=== PATIENT | male | born 1965 | race Caucasian/White ===

== ENCOUNTER 2024-04-06 20:04 | Inpatient (IN) | payer MEDICAID, OTHER ==
[~2024-04-06] VITALS: Ht 172.7 cm; Wt 132.0 kg
--- NOTE | 2024-04-06 22:01 | ED.PDOC ---
Musculoskeletal HPI Comments 58 year old male brought in by EMS, referred by Dr. Espinoza for admission due to a left lower extremity wound. Patient has history of hypertension, diabetes, congestive heart failure, DVT left leg, on Coumadin. He states has had a nonhealing left lower extremity wound with yellow discharge, redness and swe lling intermittently for the past 7 years. Patient states he was seen by Dr. Espinoza for the 1st time 2 days ago and was advised to come to the ER for treatment and hospital admission. Chief Complaint: Lower Extremity Time Seen by MD: 22:00 Reviewed Notes: Strategy Execution Consultant Notes Allergies: Coded Allergies: Ibuprofen (Verified Allergy, Unknown, 04/06/24) Information Source: Patient Mode of Arrival: EMS Location: Left Extremity Location: Leg Timing: Months Prehospital treatment: None Severity: Moderate Able to Move Extremity: Yes Bear Weight: Fully Pain: Moderate Hand Dominance: Right Mechanism: Spontaneous Circumstances: Spontaneous Onset of Symptoms: Spontaneous Symptoms: Swelling, Erythema DVT Risk Factors: CHF, DVT Associated signs and symptoms: Leg pain (left) Past Medical History PAST MEDICAL HISTORY: CHF, DM, Gout, HTN Past Medical History (Other): DVT left leg Surgical History (Other): Left leg surgery Family History Family History: Reviewed,noncontributory to illness Social History Smoker: Non-Smoker Alcohol: Denies ETOH Use Drugs: Denies Drug Use Lives In: Home Constitutional: denies: chills, diaphoresis, fatigue, fever, malaise, sweats, weakness, others EENTM: denies: blurred vision, double vision, ear bleeding, ear discharge, ear drainage, ear pain, ear ringing, eye pain, eye redness, hearing loss, mouth pain, mouth swelling, nasal discharge, nose bleeding, nose congestion, nose pain, photophobia, tearing, throat pain, throat swelling, voice changes, others Respiratory: denies: cough, hemoptysis, orthopnea, SOB at rest, shortness of breath, SOB with excertion, stridor, wheezing, others Cardiovascular: denies: chest pain, dizzy spells, diaphoresis, Dyspnea on exertion, edema, irregular heart beat, left arm pain, lightheadedness, palpitations, PND, syncope, others Gastrointestinal: denies: abdomen distended, abdominal pain, blood streaked bowels, constipated, diarrhea, dysphagia, difficulty swallowing, hematemesis, melena, nausea, poor appetite, poor fluid intake, rectal bleeding, rectal pain, vomiting, others Genitourinary: denies: burning, dysuria, flank pain, frequency, hematuria, incontinence, penile discharge, penile sore, pain, testicle pain, testicle swelling, urgency, others Neurological: denies: dizziness, fainting, headache, left sided numbness, left sided weakness, numbness, paresthesia, pre-existing deficit, right sided numbne ss, right sided weakness, seizure, speech problems, tingling, tremors, weakness, others Musculoskeletal: denies: back pain, gout, joint pain, joint swelling, muscle pain, muscle stiffness, neck pain, others Integumetry: reports: wounds (Left lower leg); denies: bruises, change in color, change in hair/nails, dryness, laceration, lesions, lumps, rash, others Allergic/Immunocompromised: denies: Difficulty Healing, Frequent Infections, Hives, Itching, others Hematologic/Lymphatic: denies: anemia, blood clots, easy bleeding, easy bruising, swollen glands, others Endocrine: denies: excessive hunger, excessive sweating, excessive thirst, excessive urination, flushing, intolerance to cold, intolerance to heat, unexplained weight gain, unexplained weight loss, others Psychiatric: denies: anxiety, bipolar disorder, depression, hopeless, panic disorder, schizophrenia, sleepless, suicidal, others Physical Exam General Appearance: No Apparent Distress, Obese HEENT: Other (Unremarkable) Neck: Full Range of Motion, Normal Inspection Respiratory: Lungs Clear, No Accessory Muscle Use, No Respiratory Distress, Normal Breath Sounds Cardiovascular: No JVD, Regular Rate/Rhythm Breast Exam: Deferred Gastrointestinal: Non Tender, Soft Genitalia: Deferred Pelvic: Deferred Rectal: Deferred Extremities: Leg edema, Normal range of motion, Pedal edema, Other (Left lower extremity chronic appearing erythema, 4+ edema, skin crusting with open wound on the posterior medial aspect of the ankle with yellow crust/discharge) Musculoskeletal : Location: Bilateral (Lower extremities 4+ edema) Neurologic: Alert (Oriented x4), Normal Affect, Normal Mood, Other (Ambulatory without difficulty. No gross focal deficit.) Cerebellar Function: NOT DONE Reflexes: NOT DONE Skin: Dry, Wounds (Left lower extremity chronic appearing erythema, 4+ edema, skin crusting with open wound on the posterior medial aspect of the ankle with yellow crust/discharge) Lymphatic: NOT DONE Was a procedure done? Was a procedure done?: No Differential Diagnosis EXT Differential Diagnosis: Cellulitis, CHF, Deep Vein Thrombosis, Septic X-Ray, Labs, Meds, VS Vital Signs Date Time Temp Pulse Resp B/P (MAP) Pulse Ox O2 Delivery O2 Flow Rate FiO2 04/07/24 02:00 63 12 105/64 (78) 100 04/07/24 00:00 65 13 106/59 (75) 97 04/07/24 00:00 Room Air* 0 21 04/06/24 20:06 98.2 68 16 134/78 (96) 95 Lab Test 04/06/24 22:47 Range/Units White Blood Count 9.1 4.4-10.8 10^3/uL Red Blood Count 4.94 4.5-5.90 10^6/uL Hemoglobin 13.9 13.5-17.5 g/dL Hematocrit 42.3 41.0-53.0 % Mean Corpuscular Volume 85.6 80.0-100.0 fL Mean Corpuscular Hemoglobin 28.2 28.0-32.0 pg Mean Corpuscular Hemoglobin Concent 32.9 32.0-36.0 g/dL Red Cell Distribution Width 15.0 H 11.8-14.3 % Platelet Count 278 140-450 10^3/uL Mean Platelet Volume 7.2 6.9-10.8 fL Neutrophils (%) (Auto) 66.2 37.0-80.0 % Lymphocytes (%) (Auto) 23.3 10.0-50.0 % Monocytes (%) (Auto) 8.7 0.0-12.0 % Eosinophils (%) (Auto) 1.3 0.0-7.0 % Basophils (%) (Auto) 0.5 0.0-2.0 % Neutrophils # (Auto) 6.0 1.6-8.6 10 ^3/uL Lymphocytes # (Auto) 2.1 0.4-5.4 10 ^3/uL Monocytes # (Auto) 0.8 0-1.3 10 ^3/uL Eosinophils # (Auto) 0.1 0-0.8 10 ^3/uL Basophils # (Auto) 0 0-0.2 10 ^3/uL Nucleated Red Blood Cells 0.1 % Sodium Level 137 136-145 mmol/L Potassium Level 3.4 L 3.5-5.1 mmol/L Chloride Level 100 98-107 mmol/L Carbon Dioxide Level 29 20-31 mmol/L Anion Gap 8 5-15 Blood Urea Nitrogen 12 9-23 mg/dL Creatinine 0.76 0.700-1.30 mg/dL Glomerular Filtration Rate Calc 105 >90 mL/min BUN/Creatinine Ratio 15.8 10.0-20.0 Serum Glucose 42 *L 74-106 mg/dL Lactic Acid Level 1.7 0.4-2.0 mmol/L Calcium Level 10.0 8.7-10.4 mg/dL B-Type Natriuretic Peptide 10.58 0-100 pg/mL Current Medications Medications (Trade) Dose Ordered Sig/Liseth Route Start Time Stop Time Status Last Admin Piperacillin Sod/ Tazobactam Sod 100 ml @ 100 mls/hr ONCE ONCE IV 04/06/24 22:15 04/06/24 23:14 DC 04/07/24 00:55 Potassium Chloride (Klor-Con Tablet) 40 meq ONCE ONCE PO 04/07/24 00:30 04/07/24 00:34 DC 04/07/24 00:55 Dextrose/Sodium Chloride 1,000 ml @ 75 mls/hr [id number] IV 04/07/24 02:30 04/07/24 03:44 EXAMINATION: AP portable chest radiograph CLINICAL HISTORY: lower extremity edema COMPARISON: None FINDINGS: Central vascular redistribution. Streaky opacities in the lung bases. Mild apparent prominence of the cardiac silhouette may be in part exaggerated by technique. No definite pleural effusion or pneumothorax. IMPRESSION: Pulmonary vascular congestion. Lateral lower lung field opacities may reflect atelectasis, edema and/or developing infiltrates. Please correlate to exclude infection. X-Ray, Labs, Meds, VS Comment 58-year-old male with a history of CHF, diabetes, hypertension, gout and chronic left lower extremity DVT referred by Dr. Espinoza for hospital admission due to left lower extremity open nonhealing wound Vitals unremarkable Exam remarkable for left lower extremity chronic appearing erythema, 4+ edema, skin crusting with open wound on the posterior medial aspect of the ankle with yellow crust/discharge Rhythm strip independently interpreted by me: Sinus rhythm, rate 68, no ectopy. Chest x-ray IMPRESSION: Pulmonary vascular congestion. Lateral lower lung field opacities may reflect atelectasis, edema and/or developing infiltrates. Please correlate to exclude infection. CBC unremarkable, basic metabolic panel remarkable for potassium 3.4, glucose 42, BNP normal, lactic normal, blood cultures pending Patient treated with the following in the ED: Zosyn 4.5 g IV On re-evaluation, patient is resting comfortably with stable vitals. Plan is to admit the patient for IV antibiotics, diuresis and wound care evaluation Time of 1ST Reevaluation: 21:55 Reevaluation 1ST: Unchanged Patient Education/Counseling: Diagnosis, Treatment Family Education/Counseling: No Family Present Departure 1 Departure Time of Disposition: 23:19 Impression: Primary Impression: Left leg cellulitis Disposition: ADMITTED INPATIENT Admit to: Med Surg Condition: Fair Critical Care Note Critical Care Time?: No Stability Stability form required: No Heart Score Heart Score: Heart Score Response (Comments) Value History N/A 0 EKG N/A 0 Age N/A 0 Risk Factors N/A 0 Troponin N/A 0 Total 0 I personally scribed for BETH GARCIA MD ([email or web address]) on 04/06/24 at 22:01. Electronically submitted by Eric Buck ([employer]). I personally scribed for BETH GARCIA MD ([email or web address]) on 04/07/24 at 00:08. Electronically submitted by Eric Buck ([email or web address]). BETH GARCIA MD Apr 06, 2024 22:01
--- NOTE | 2024-04-06 22:28 | DVH ---
EXAMINATION: AP portable chest radiograph CLINICAL HISTORY: lower extremity edema COMPARISON: None FINDINGS: Central vascular redistribution. Streaky opacities in the lung bases. Mild apparent prominence of the cardiac silhouette may be in part exaggerated by technique. No definite pleural effusion or pneumoth orax. IMPRESSION: Pulmonary vascular congestion. Lateral lower lung field opacities may reflect atelectasis, edema and/or developing infiltrates. Plea se correlate to exclude infection.
[2024-04-06 23:05] LABS: Basophils # (auto) 0 10 ^3/uL (0-0.2); Basophils % (auto) 0.5 % (0.0-2.0); Eosinophils # (auto) 0.1 10 ^3/uL (0-0.8); Eosinophils % (auto) 1.3 % (0.0-7.0); Hematocrit 42.3 % (41.0-53.0); Hemoglobin 13.9 g/dL (13.5-17.5); Lymphocytes # (auto) 2.1 10 ^3/uL (0.4-5.4); Lymphocytes % (auto) 23.3 % (10.0-50.0); Mean Corpuscular Hemoglobin 28.2 pg (28.0-32.0); Mean Corpuscular Hgb Conc. 32.9 g/dL (32.0-36.0); Mean Corpuscular Volume 85.6 fL (80.0-100.0); Monocytes # (auto) 0.8 10 ^3/uL (0-1.3); Monocytes % (auto) 8.7 % (0.0-12.0); Neutrophils % (auto) 66.2 % (37.0-80.0); Nucleated Red Blood Cells % 0.1 %; Platelet Count (auto) 278 10^3/uL (140-450); Red Blood Cells 4.94 10^6/uL (4.5-5.90); White Blood Cell 9.1 10^3/uL (4.4-10.8)
[2024-04-06 23:15] LABS: Chloride 100 mmol/L (98-107); Sodium 137 mmol/L (136-145)
[2024-04-06 23:16] LABS: Anion Gap 8 (5-15); Carbon Dioxide 29 mmol/L (20-31)
[2024-04-06 23:19] LABS: Potassium 3.4 mmol/L (3.5-5.1)
[2024-04-06 23:21] LABS: BUN/Creatinine Ratio 15.8 (10.0-20.0); Blood Urea Nitrogen 12 mg/dL (9-23)
[2024-04-06 23:58] LABS: Glucose 42 mg/dL (74-106)
[2024-04-07] MEDS: FUROSEMIDE 40 MG/4 ML VIAL IV ONE (00:14)
[2024-04-07] MEDS: PIPERACILLIN-TAZO 4.5GM 100 ML IV ONE (00:55)
[2024-04-07] MEDS: POTASSIUM CHL 20 Meq TABLET PO ONE (00:55)
[2024-04-07] MEDS ORDERED: DOCUSATE SOD 100 MG CAP PO PRN (02:30)
[2024-04-07] MEDS ORDERED: HYDROcodone-ACET 5/325MG TAB PO PRN (02:30)
[2024-04-07] MEDS ORDERED: ONDANSETRON HCL 4 MG/2 ML VIAL IV PRN (02:30)
[2024-04-07] MEDS ORDERED: DEXTROSE (50%) 50ML SYRG IV PRN (02:30)
[2024-04-07] MEDS ORDERED: ACETAMINOPHEN 325 MG TAB PO PRN (02:30)
[2024-04-07] MEDS ORDERED: MORPHINE SULFATE INJ 2 MG/ml SYRG IV PRN (03:15)
[2024-04-07] MEDS ORDERED: NITROGLYCERIN 0.4 MG SL TAB SL PRN (03:15)
--- NOTE | 2024-04-07 03:16 | DVHHP2 ---
History of Present Illness Reason for Visit: Left leg cellulitis History of Present Illness The patient is a 58 year old male with past medical history of CHF, DM, gout, hypertension, and left leg DVT on Coumadin presented to [facility] ED for evaluation of left lower extremity wound. Patient reports he has been experiencing nonhealing left lower extremity wound with yellow discharge, redness, and swelling intermittently for the past 7 years. Patient was seen and evaluated in the ED, laboratory data shows WBC 9.1, platelets 278, sodium 137, potassium 3.4, BUN 12, creatinine 0.76, GFR 105, glucose 42, BNP 10.58, blood pressure 106/59, heart rate 65, temperature 98.2 F, O2 saturation 97% room air. Chest x-ray revealing pulmonary vascular congestion, lateral lower lung field opacity may reflect atelectasis, edema and/or developing infiltrates. Patient was started on IV antibiotic regimen Zosyn, please see medication orders section in the computer. On my assessment, patient denied chest pain, no headache, no dizziness, no diaphoresis, no nausea, no vomiting, no fever, no chills. Patient was admitted for further evaluation and medical management. Past Medical History CHF, DM, Gout, HTN, DVT left leg Past Surgical History Left leg surgery Family History Reviewed, noncontributory to the management of this case. Past Social History The patient lives at home, denies smoking, alcohol or illicit drugs abuse. Review of Systems Constitutional: Yes: Weakness; No: Fever, Chills, Sweats, Malaise, Other Eyes: No: Pain, Vision change, Conjunctivae inflammation, Eyelid inflammation, Other, Redness ENT: No: Ear pain, Ear discharge, Nose pain, Nose discharge, Nose congestion, Mouth pain, Mouth swelling, Throat pain, Throat swelling, Other Respiratory: No: Cough, Dry, Shortness of breath, SOB with excertion, Wheezing, Hemoptysis, Pleuritic Pain, Sputum, Wheezing, Other Cardiovascular: No: Chest Pain, Palpitations, Orthopnea, Paroxysmal Noc. Dyspnea, Edema, Lt Headedness, Other Gastrointestinal: No: Nausea, Vomiting, Abdominal Pain, Diarrhea, Constipation, Melena, Hematochezia, Other Genitourinary: No Dysuria, No Frequency, No Incontinence, No Hematuria, No Retention, No Other Musculoskeletal: No: other, neck pain, shoulder pain, arm pain, back pain, hand pain, leg pain, foot pain Skin: Other (Wound left lower leg); No: Rash, Lesions, Jaundice, Bruising Neurological: No: Weakness, Numbness, Incoordination, Change in speech, Confusion, Seizures, Other Allergies: Coded Allergies: Ibuprofen (Verified Allergy, Unknown, 04/06/24) Medications Current Medications Medications Dose Ordered Sig/Liseth Route Start Time Stop Time Status Last Admin Dose Admin Furosemide 40 mg DAILY IV 04/07/24 10:00 Warfarin Sodium RX PROTOCOL PER PHARMACY PO 04/07/24 02:30 UNV Piperacillin Sod/ Tazobactam Sod 100 ml @ 25 mls/hr Q8H IV 04/07/24 09:00 Diagnostic Test (Pha) 1 strip ACHS 04/07/24 07:00 Insulin Human Regular ACHS SC 04/07/24 07:00 Dextrose 50 ml UD PRN IV 04/07/24 02:30 Sodium Chloride 10 ml Q8HR IV 04/07/24 06:00 Acetaminophen/ Hydrocodone Bitart 1 tab Q4HP PRN PO 04/07/24 02:30 Ondansetron HCl 4 mg Q4HP PRN IV 04/07/24 02:30 Docusate Sodium 100 mg BIDPRN PRN PO 04/07/24 02:30 Acetaminophen 650 mg Q6HP PRN PO 04/07/24 02:30 Dextrose/Sodium Chloride 1,000 ml @ 75 mls/hr [id number] IV 04/07/24 02:30 Exam Vital Signs Vital Signs Date Time Temp Pulse Resp B/P (MAP) Pulse Ox O2 Delivery O2 Flow Rate FiO2 04/07/24 02:00 63 12 105/64 (78) 100 04/07/24 00:00 Room Air* 0 21 04/06/24 20:06 98.2 General Appearance: Alert, Oriented X3, Cooperative, No acute distress HEENT: Atraumatic, PERRLA, EOMI, Mucous membr. moist/pink Respiratory: Clear to auscultation, Normal air movement Cardiovascular: Regular rate, Normal S1, Normal S2, No murmurs Abdominal: Normal bowel sounds, Soft, No tenderness, No hepatospenomegaly, No masses Extremities: No clubbing, No cyanosis, No edema, Normal pulses, No tenderness/swelling Skin: No rashes, No breakdown, No significant lesion Neuro: Normal speech, Normal tone, Sensation intact, Cranial nerves 3-12 NL, Reflexes 2+, Other (Generalized weakness) Psych/Mental Status: Mental status NL, Mood NL Labs/Xrays Labs Test 04/06/24 22:47 Range/Units White Blood Count 9.1 4.4-10.8 10^3/uL Red Blood Count 4.94 4.5-5.90 10^6/uL Hemoglobin 13.9 13.5-17.5 g/dL Hematocrit 42.3 41.0-53.0 % Mean Corpuscular Volume 85.6 80.0-100.0 fL Mean Corpuscular Hemoglobin 28.2 28.0-32.0 pg Mean Corpuscular Hemoglobin Concent 32.9 32.0-36.0 g/dL Red Cell Distribution Width 15.0 H 11.8-14.3 % Platelet Count 278 140-450 10^3/uL Mean Platelet Volume 7.2 6.9-10.8 fL Neutrophils (%) (Auto) 66.2 37.0-80.0 % Lymphocytes (%) (Auto) 23.3 10.0-50.0 % Monocytes (%) (Auto) 8.7 0.0-12.0 % Eosinophils (%) (Auto) 1.3 0.0-7.0 % Basophils (%) (Auto) 0.5 0.0-2.0 % Neutrophils # (Auto) 6.0 1.6-8.6 10 ^3/uL Lymphocytes # (Auto) 2.1 0.4-5.4 10 ^3/uL Monocytes # (Auto) 0.8 0-1.3 10 ^3/uL Eosinophils # (Auto) 0.1 0-0.8 10 ^3/uL Basophils # (Auto) 0 0-0.2 10 ^3/uL Nucleated Red Blood Cells 0.1 % Sodium Level 137 136-145 mmol/L Potassium Level 3.4 L 3.5-5.1 mmol/L Chloride Level 100 98-107 mmol/L Carbon Dioxide Level 29 20-31 mmol/L Anion Gap 8 5-15 Blood Urea Nitrogen 12 9-23 mg/dL Creatinine 0.76 0.700-1.30 mg/dL Glomerular Filtration Rate Calc 105 >90 mL/min BUN/Creatinine Ratio 15.8 10.0-20.0 Serum Glucose 42 *L 74-106 mg/dL Lactic Acid Level 1.7 0.4-2.0 mmol/L Calcium Level 10.0 8.7-10.4 mg/dL B-Type Natriuretic Peptide 10.58 0-100 pg/mL PATIENT: JILLIAN RIVAS ACCT: [id number] UNIT: [id number] : 1965 LOC: ER ROOM / BED: / AGE / SEX: 58 / M ADM STATUS: REG ER SERVICE 00 ORDERING PHYSICIAN: BETH GARCIA MD PROCEDURE(s): CXRP - CHEST PORTABLE REASON: lower extremity edema ORDER NUMBER(s): [id number], ACCESSION NUMBER(s): [id number] EXAMINATION: AP portable chest radiograph CLINICAL HISTORY: lower extremity edema COMPARISON: None FINDINGS: Central vascular redistribution. Streaky opacities in the lung bases. Mild apparent prominence of the cardiac silhouette may be in part exaggerated by technique. No definite pleural effusion or pneumothorax. IMPRESSION: Pulmonary vascular congestion. Lateral lower lung field opacities may reflect atelectasis, edema and/or developing infiltrates. Please correlate to exclude infection Assessment/Plan Assessment/Plan Left leg cellulitis Hypokalemia Pneumonia, unspecified organisms Diabetes mellitus with hypoglycemia Plan 1. Admit to telemetry unit 2. Breathing treatment 3. Pain control management 4. IV antibiotic management 5. Management of fluids and electrolytes 6. Consultation for hospitalist/wound care 7. Diagnostic test chest x-ray 8. DVT prophylaxis-on Coumadin 9. Repeat labs CBC, CMP in a.m. 10. Home medication reviewed and reconciled 11. Continue with current medical management 12. Treatment plan discussed with patient and RN. Patient verbalized understanding. Plan discussed with: Patient, Other (RN) My Orders Orders - AGUEDA MORRIS DNP Procedure Category Date Status Time Complete Blood Count LAB 04/07/24 Logged 04:00 Comprehensive LAB 04/07/24 Logged Metabolic Panel 04:00 Furosemide Injection PHA 04/07/24 In Process (Lasix Injection) 10:00 Warfarin Per Rx PHA 04/07/24 Pending Protocol (Coumadin 02:30 Piperacillin-Tazob PHA 04/07/24 In Process 3.375gm (Zosyn 3.375g 09:00 Glucose Blood PHA 04/07/24 In Process (Accu-Chek Comfort 07:00 Insulin R (Human) PHA 04/07/24 In Process (Insulin R) 07:00 Dextrose 50% Syringe PHA 04/07/24 In Process 02:30 Allergies BERTRAM 04/07/24 In Process 02:18 Code Status CODE 04/07/24 Transmitted 02:18 Sodium Chloride Lock PHA 04/07/24 In Process (Saline Lock Ns) 06:00 Oxygen Per Hour RT 04/07/24 Transmitted 02:18 Hydrocodone-Acet PHA 04/07/24 In Process 5/325mg Tab (Yulan 02:30 Ondansetron Hcl PHA 04/07/24 In Process (Zofran) 02:30 Docusate Sodium PHA 04/07/24 In Process Capsule (Colace 02:30 Complete Blood Count LAB 04/08/24 Verified 04:00 Comprehensive LAB 04/08/24 Verified Metabolic Panel 04:00 Condition: Serious BERTRAM 04/07/24 In Process 02:18 Acetaminophen Tablet PHA 04/07/24 In Process (Tylenol Tablet) 02:30 Bedrest With Bathroom BERTRAM 04/07/24 In Process Privileg 02:18 Sequential BERTRAM 04/07/24 In Process Compression Device D5w/Sod Chlo 0.9% PHA 04/07/24 In Process (D5w Ns 0.9%) 02:30 Consistent DIET 04/07/24 Transmitted Carb(Ccho)Diabetes Breakfast Problem List: (1) Left leg cellulitis (2) Hypokalemia (3) Pneumonia, unspecified organism (4) Diabetes mellitus with hypoglycemia Date of Service: Apr 07, 2024 Billing Provider: AGUEDA MORRIS DNP Common Visit Codes: 61334-NLXDWST INP/OBS CARE (HIGH) AGUEDA MORRIS DNP Apr 07, 2024 03:16
[2024-04-07] MEDS: D5W/SOD CHLO 0.9% 1,000 ML IV SCH (03:44)
[2024-04-07] MEDS: SODIUM CHLOR 0.9% PF (SALINE LOCK) 10ML VIAL/SYR IV SCH (05:37)
[2024-04-07] MEDS: MORPHINE SULFATE INJ 2 MG/ml SYRG IV PRN (06:11)
[2024-04-07] MEDS: ACCU-CHEK COMFORT CURVE STRIP VI SCH (06:41)
[2024-04-07] MEDS: InsuLIN REG 1unit/0.01ml Soln (100units/ml) SC SCH (06:42)
[2024-04-07 07:50] LABS: Alanine Aminotransferase 13 U/L (7-40); Albumin 3.8 g/dL (3.2-4.8); Alkaline Phosphatase 65 U/L (46-116); Anion Gap 5 (5-15); Aspartate Aminotransferase 24 U/L (13-40); Bilirubin, Total 0.9 mg/dL (0.2-1.0); Calcium 9.5 mg/dL (8.7-10.4); Carbon Dioxide 27 mmol/L (20-31); Chloride 103 mmol/L (98-107); Potassium 3.7 mmol/L (3.5-5.1); Total Protein 7.4 g/dL (5.7-8.2)
[2024-04-07 07:51] LABS: Blood Urea Nitrogen 8 mg/dL (9-23); Glucose 74 mg/dL (74-106); Sodium 135 mmol/L (136-145)
[2024-04-07 07:54] LABS: Basophils # (auto) 0.1 10 ^3/uL (0-0.2); Basophils % (auto) 1.1 % (0.0-2.0); Eosinophils # (auto) 0.2 10 ^3/uL (0-0.8); Eosinophils % (auto) 2.1 % (0.0-7.0); Hematocrit 39.2 % (41.0-53.0); Hemoglobin 12.9 g/dL (13.5-17.5); Lymphocytes # (auto) 1.8 10 ^3/uL (0.4-5.4); Lymphocytes % (auto) 23.6 % (10.0-50.0); Mean Corpuscular Hemoglobin 28.2 pg (28.0-32.0); Mean Corpuscular Volume 85.3 fL (80.0-100.0); Monocytes # (auto) 0.7 10 ^3/uL (0-1.3); Monocytes % (auto) 9.8 % (0.0-12.0); Neutrophils # (auto) 4.8 10 ^3/uL (1.6-8.6); Neutrophils % (auto) 63.4 % (37.0-80.0); Nucleated Red Blood Cells % 0.1 %; Platelet Count (auto) 267 10^3/uL (140-450); Red Cell Distribution Width 14.7 % (11.8-14.3); White Blood Cell 7.6 10^3/uL (4.4-10.8)
[2024-04-07 08:59] VITALS: PULSE 78; RESP 15; O2SAT 96
[2024-04-07 09:10] LABS: INR 2.16 (0.9-1.15); Partial Thromboplastin Time 38.4 SEC (24.5-34.5); Prothrombin Time 21.6 sec (9.3-11.8)
[2024-04-07] MEDS: PIPERACILLIN-TAZOB 3.375GM 100 ML IV SCH (09:27)
[2024-04-07 09:48] VITALS: BP 107/77; PULSE 86; RESP 20; TEMP 98; O2SAT 93
[2024-04-07 10:09] VITALS: BP 107/77; PULSE 86; RESP 20; TEMP 98; O2SAT 93
[2024-04-07] MEDS ORDERED: WARF-112 PO (10:32)
[2024-04-07] MEDS ORDERED: PRIM50TA5 PO (10:32)
[2024-04-07] MEDS ORDERED: ASPI-325 PO (10:32)
[2024-04-07] MEDS ORDERED: INSU1INJ19 SC (10:32)
[2024-04-07] MEDS ORDERED: METO25TA93 PO (10:36)
[2024-04-07] MEDS ORDERED: BENA-36 PO (10:36)
[2024-04-07] MEDS ORDERED: FURO80TA3 PO (10:36)
[2024-04-07] MEDS ORDERED: SPIR25TA8 PO (10:36)
[2024-04-07] MEDS ORDERED: ALLO300T2 PO (10:36)
[2024-04-07] MEDS ORDERED: GLIP5TAB21 PO (10:37)
[2024-04-07] MEDS: FUROSEMIDE 40 MG/4 ML VIAL IV SCH (10:47)
[2024-04-07 13:00] VITALS: BP 113/78; PULSE 73; RESP 18; TEMP 97.7; O2SAT 98
[2024-04-07] MEDS: AMPICILLIN & SULBACTAM SODIUM 3 GM in SODIUM CHL 0.9% 100 ML IV SCH (16:07)
[2024-04-07 17:00] VITALS: BP 113/71; PULSE 69; RESP 18; TEMP 97.8; O2SAT 98
--- NOTE | 2024-04-07 17:08 | DVH ---
BILATERAL LOWER EXTREMITY VENOUS DOPPLER CLINICAL HISTORY: Evaluate for DVT. Technique: Duplex Doppler evaluation of the deep venous systems of both lower extremities from the co mmon femoral veins to the popliteal veins including color Doppler and spectral/pulsed waveform analys is was performed. COMPARISON: None FINDINGS: There is nonocclusive thrombus seen in the left popliteal vein. The remaining bilateral lower extremi ty deep veins appear patent with normal augmentation, compressibility and color-flow. IMPRESSION: 1. Nonocclusive thrombus in the left popliteal vein. 2. There is no sonographic evidence for DVT in the right lower extremity. HS:Y
--- NOTE | 2024-04-07 17:14 | DVHPNRES ---
Progress Note Date Seen: Apr 07, 2024 Resident Creating Document: OLIVER HERNANDEZ RESIDENT Has the PT tested + for MRSA If YES, has PT been informed?: No Medical Necessity Reason Pt with a Central, PICC or Fol: No Subjective Review of Systems: HEENT:Normal, CVS:Normal, RESPIRATORY:Normal, GI:Normal, :Normal, MSK:Abnormal, NEURO:Abnormal Objective vital signs Vital Sign Date Time Temp Pulse Resp B/P (MAP) Pulse Ox O2 Delivery O2 Flow Rate FiO2 04/07/24 13:00 97.7 73 18 113/78 (90) 98 97.7 04/07/24 08:59 Room Air* 0 21 Total Intake and Output 04/06/24 04/06/24 04/07/24 15:00 23:00 07:00 Intake Total 225 ml Balance 225 ml medications Current Medications Medications Dose Ordered Sig/Liseth Route Start Time Stop Time Status Last Admin Dose Admin Furosemide 40 mg DAILY IV 04/07/24 10:00 04/07/24 10:47 40 MG Warfarin Sodium RX PROTOCOL PER PHARMACY PO 04/07/24 02:30 Diagnostic Test (Pha) 1 strip ACHS 04/07/24 07:00 04/07/24 16:52 1 STRIP Insulin Human Regular ACHS SC 04/07/24 07:00 Dextrose 50 ml UD PRN IV 04/07/24 02:30 Sodium Chloride 10 ml Q8HR IV 04/07/24 06:00 04/07/24 14:00 10 ML Acetaminophen/ Hydrocodone Bitart 1 tab Q4HP PRN PO 04/07/24 02:30 Ondansetron HCl 4 mg Q4HP PRN IV 04/07/24 02:30 Docusate Sodium 100 mg BIDPRN PRN PO 04/07/24 02:30 Acetaminophen 650 mg Q6HP PRN PO 04/07/24 02:30 Dextrose/Sodium Chloride 1,000 ml @ 75 mls/hr [id number] IV 04/07/24 02:30 04/07/24 03:44 75 MLS/HR Nitroglycerin 0.4 mg Q5MINP PRN SL 04/07/24 03:15 Morphine Sulfate 2 mg Q30M PRN IV 04/07/24 03:15 Morphine Sulfate 2 mg Q4HPRN PRN IV 04/07/24 05:36 04/07/24 06:11 2 MG Ampicillin Sodium/ Sulbactam Sodium 3 gm/Sodium Chloride 100 ml @ 100 mls/hr Q6H IV 04/07/24 15:00 04/07/24 16:07 100 MLS/HR Examination: GENERAL:Normal, HEENT:Normal, NECK:Normal, LUNGS:Abnormal (Basal rales,), CVS:Normal, ABDOMEN:Normal, MSK:Abnormal (Bilateral leg swelling, varicose veins, pitting edema, left leg swollen, tender, weeping.), SKIN:Normal, NEURO:Normal, :Normal laboratory and microbiology Laboratory Tests 04/07/24 07:00 Test 04/07/24 07:00 Range/Units Serum Glucose 74 74-106 mg/dL Labs and/or images reviewed: Labs reviewed by me, Image(s) reviewed by me Problem List/Assessment/Plan Problem List/Assessment/Plan Hospitalization summary/ Assessment: A 58-year-old male with a history of CHF, diabetes, gout, hypertension, and left leg DVT on Coumadin presented to the ED with a nonhealing left lower extremity wound with yellow discharge, redness, and swelling for the past 7 years. Lab results showed WBC 9.1, platelets 278, sodium 137, potassium 3.4, BUN 12, creatinine 0.76, GFR 105, glucose 42, BNP 10.58, blood pressure 106/59, heart rate 65, temperature 98.2F, and O2 saturation 97%. Chest X-ray indicated pulmonary vascular congestion and possible atelectasis, edema, or developing infiltrates. He was started on IV Zosyn and admitted for further evaluation and management. He denies chest pain, headache, dizziness, diaphoresis, nausea, vomiting, fever, or chills. He lives at home and denies smoking, alcohol, or illicit drug use. Plan: # Left leg cellulitis: IV antibiotics to continue, iv abx, patient is allergic to penicillin , MRSA negative and consider IV ceftriaxone blood culture to follow up. # recurrent left leg cellulitis, venous ulcers needing failed skin graft. # history of bilateral venous insufficiency on status post venous stripping surgery follows with vascular surgeon locally # hypokalemia: Continue daily BMP as needed correction. # possible pneumonia: Gram-positive cognitive: Continue IV antiemetics. Sputum culture, denies any aspiration. # pain bilateral venous stasis, follow up with the # DM: continue SSI. # known left leg DVT, nonocclusive previously on Eliquis due to GI bleed had to stop changed to warfarin with target INR 2-3, continue warfarin as per pharmacy. # history of gout: No acute flare at this point. Allopurinol 300 mg p.o. daily # history of HFpEF: Hypertensive heart disease, unlikely examination BNP of 10.8. Lasix to continue as it might help the leg swelling by reducing tissue edema. Repeat echo. At home patient takes spironolactone 25 mg p.o. b.i.d., Lasix 80 mg p.o. daily. Metoprolol succinate 25 mg daily. # patient is noncompliant, not following in-hospital advice. # obesity grade 3/morbid obesity, weight loss counseling and healthy diet counseling done. # worsening left lower limb own: Previously used to follow with Dr. Soni, wound care at home almost. 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 Patient came with compression stockings bilaterally. # seasonal allergy Claritin 10 mg as needed at night # osteoarthritis: back pain, musculoskeletal pain and osteoarthritis likely age-related: As needed [place] 10 and cyclobenzaprine muscle relaxant continue Diet: CC diet. Patient is not compliant with CC diet he wants more food than suggested. GI prophylaxis: PPI DVT prophylaxis: warfarin 2-3 INR Bowel regimen: as needed Colace Barriers to discharge: Medical diagnosis and management in progress. Patient lives in home with the son who has special needs. The son is in the bed next to him. Patient care and plan discussed with Dr. Goodwin Disposition: Patient remains in Med-Surgery. Full code, Plan and discussion needed 43 total minutes. Plan discussed with: Patient, Other My Orders My Orders Orders - OLIVER HERNANDEZ Procedure Category Date Status Time * Wound Consult CONS 04/07/24 Transmitted Mrsa Screen PRO 04/07/24 In Process 14:33 Ampicillin & PHA 04/07/24 In Process Sulbactam Sodium 15:00 Bilat Lower Dvt US 04/07/24 Resulted 15:11 Date of Service: Apr 07, 2024 Billing Provider: KARYN JACOBSEN MD Common Visit Codes: [id number] INP/OBS CARE(HIGH) OLIVER HERNANDEZ Apr 07, 2024 17:13 KARYN JACOBSEN MD Apr 10, 2024 20:57
[2024-04-07] MEDS: WARFARIN SODIUM 2 MG TAB PO ONE (17:18)
[2024-04-07 21:00] VITALS: BP 115/72; PULSE 72; RESP 18; TEMP 98.4; O2SAT 98
[2024-04-08 05:00] VITALS: BP 120/74; PULSE 70; RESP 18; TEMP 98.6; O2SAT 99
[2024-04-08 08:15] VITALS: PULSE 67; RESP 22; O2SAT 96
[2024-04-08 09:00] VITALS: BP 123/66; PULSE 67; RESP 22; TEMP 97.6; O2SAT 96
[2024-04-08 09:03] LABS: Basophils # (auto) 0.1 10 ^3/uL (0-0.2); Basophils % (auto) 1.2 % (0.0-2.0); Eosinophils # (auto) 0.2 10 ^3/uL (0-0.8); Eosinophils % (auto) 3.3 % (0.0-7.0); Hematocrit 47.9 % (41.0-53.0); Hemoglobin 15.2 g/dL (13.5-17.5); Lymphocytes # (auto) 1.9 10 ^3/uL (0.4-5.4); Lymphocytes % (auto) 29.1 % (10.0-50.0); Mean Corpuscular Hemoglobin 27.7 pg (28.0-32.0); Mean Corpuscular Hgb Conc. 31.8 g/dL (32.0-36.0); Mean Corpuscular Volume 87.3 fL (80.0-100.0); Monocytes # (auto) 0.6 10 ^3/uL (0-1.3); Monocytes % (auto) 9.8 % (0.0-12.0); Neutrophils # (auto) 3.7 10 ^3/uL (1.6-8.6); Neutrophils % (auto) 56.6 % (37.0-80.0); Nucleated Red Blood Cells % 0.1 %; Platelet Count (auto) 254 10^3/uL (140-450); Red Blood Cells 5.49 10^6/uL (4.5-5.90); Red Cell Distribution Width 14.9 % (11.8-14.3); White Blood Cell 6.6 10^3/uL (4.4-10.8)
[2024-04-08 09:25] LABS: INR 2.2 (0.9-1.15); Partial Thromboplastin Time 29.4 SEC (24.5-34.5)
--- NOTE | 2024-04-08 10:02 | DVHPNRES ---
Progress Note Date Seen: Apr 08, 2024 Resident Creating Document: OLIVER HERNANDEZ RESIDENT Has the PT tested + for MRSA If YES, has PT been informed?: No Medical Necessity Reason Pt with a Central, PICC or Fol: No Objective vital signs Vital Sign Date Time Temp Pulse Resp B/P (MAP) Pulse Ox O2 Delivery O2 Flow Rate FiO2 04/08/24 09:00 97.6 67 22 123/66 (85) 96 97.6 04/08/24 08:15 Room Air* 0 21 Total Intake and Output 04/07/24 04/07/24 04/08/24 15:00 23:00 07:00 Intake Total 100 ml 300 ml 800 ml Balance 100 ml 300 ml 800 ml medications Current Medications Medications Dose Ordered Sig/Liseth Route Start Time Stop Time Status Last Admin Dose Admin Furosemide 40 mg DAILY IV 04/07/24 10:00 04/08/24 09:00 40 MG Warfarin Sodium RX PROTOCOL PER PHARMACY PO 04/07/24 02:30 Diagnostic Test (Pha) 1 strip ACHS 04/07/24 07:00 04/08/24 06:50 1 STRIP Insulin Human Regular ACHS SC 04/07/24 07:00 Dextrose 50 ml UD PRN IV 04/07/24 02:30 Sodium Chloride 10 ml Q8HR IV 04/07/24 06:00 04/08/24 06:28 10 ML Acetaminophen/ Hydrocodone Bitart 1 tab Q4HP PRN PO 04/07/24 02:30 Ondansetron HCl 4 mg Q4HP PRN IV 04/07/24 02:30 Docusate Sodium 100 mg BIDPRN PRN PO 04/07/24 02:30 Acetaminophen 650 mg Q6HP PRN PO 04/07/24 02:30 Dextrose/Sodium Chloride 1,000 ml @ 75 mls/hr [id number] IV 04/07/24 02:30 04/07/24 03:44 75 MLS/HR Nitroglycerin 0.4 mg Q5MINP PRN SL 04/07/24 03:15 Morphine Sulfate 2 mg Q30M PRN IV 04/07/24 03:15 Morphine Sulfate 2 mg Q4HPRN PRN IV 04/07/24 05:36 04/07/24 06:11 2 MG Ampicillin Sodium/ Sulbactam Sodium 3 gm/Sodium Chloride 100 ml @ 100 mls/hr Q6H IV 04/07/24 15:00 04/07/24 16:07 100 MLS/HR Examination: GENERAL:Normal, HEENT:Normal, NECK:Normal, LUNGS:Normal, CVS:Normal, ABDOMEN:Normal (Central obesity otherwise unremarkable), MSK:Abnormal (Right leg prominent events, scar salves previous vein stripping surgery otherwise unremarkable vascular muscular and neurological functions intact. Extremely dry plantar surface flaky. On left side from below knee till ankle patient to have circumferential swelling redness, blisters openings skin changes chronic extravasation of blood, skin ulcers noted. Clean and dressing applied with the help of RN and Wound Care nursing.), SKIN:Abnormal (Apart from leg screen, patient has left thigh skin grafting surgery scar oswald. No concerning skin changes for carcinoma noted.), NEURO:Abnormal (Patient is mildly anxious, distracted overly talkative but otherwise AAO x4) laboratory and microbiology Laboratory Tests 04/08/24 08:20 Test 04/08/24 08:20 Range/Units Serum Glucose Pending Microbiology Date/Time Source Procedure Growth Status 04/06/24 22:48 Blood Blood Culture - Preliminary NO GROWTH AFTER 24 HOURS OF INCUBATION. Resulted Labs and/or images reviewed: Labs reviewed by me, Image(s) reviewed by me Problem List/Assessment/Plan Problem List/Assessment/Plan Hospitalization summary/ Assessment: A 58-year-old male with a history of CHF, diabetes, gout, hypertension, and left leg DVT on Coumadin presented to the ED with a nonhealing left lower extremity wound with yellow discharge, redness, and swelling for the past 7 years. Lab results showed WBC 9.1, platelets 278, sodium 137, potassium 3.4, BUN 12, creatinine 0.76, GFR 105, glucose 42, BNP 10.58, blood pressure 106/59, heart rate 65, temperature 98.2F, and O2 saturation 97%. Chest X-ray indicated pulmonary vascular congestion and possible atelectasis, edema, or developing infiltrates. He was started on IV Zosyn and admitted for further evaluation and management. He denies chest pain, headache, dizziness, diaphoresis, nausea, vomiting, fever, or chills. He lives at home and denies smoking, alcohol, or illicit drug use. Patient came to the ED for worsening leg swelling and questionable left lower leg cellulitis that he had previous experiences of. Overall with IV antibiotics and IV Lasix symptomatically better. This morning patient had wound care nursing evaluation. Overall patient feels better than admission. Plan: # Left leg cellulitis: IV antibiotics to continue, iv abx, patient is allergic to penicillin , MRSA negative and consider IV ceftriaxone blood culture to follow up. # recurrent left leg cellulitis, venous ulcers: s/p failed skin graft. Wound care to continue, social work consulted for home wound care. # history of bilateral venous insufficiency on status post venous stripping surgery: follows with vascular surgeon locally # hypokalemia: Continue daily BMP as needed correction. # possible pneumonia: Gram-positive cognitive: Continue IV antiemetics. Sputum culture, denies any aspiration. # pain bilateral venous stasis: compression stockings, patient is at baseline mobile, walking, baseline ADL intact , unlikely will need PT # DM: At home patient was on SSI and oral diabetic medications, as per patient compliant, check HbA1c. continue SSI. # known left leg DVT, nonocclusive previously on Eliquis: due to GI bleed had to stop changed to warfarin with target INR 2-3, continue warfarin as per pharmacy. Repeat U/S bilateral lower leg DVT positive for nonocclusive DVT as seen previously. # history of gout: No acute flare at this point. Allopurinol 300 mg p.o. daily to continue. # history of HFpEF: Hypertensive heart disease, unlikely examination BNP of 10.8. Lasix to continue as it might help the leg swelling by reducing tissue edema. Repeat echo. At home patient takes spironolactone 25 mg p.o. b.i.d., Lasix 80 mg p.o. daily. Metoprolol succinate 25 mg daily. # patient is noncompliant, not following in-hospital advice. # obesity grade 3/morbid obesity, weight loss counseling and healthy diet counseling done. # worsening left lower limb wounds: Previously used to follow with Dr. Soni, wound care at home almost 1 year ago lost follow up. 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 Patient came with compression stockings bilaterally. # seasonal allergy: Claritin 10: mg as needed at night # osteoarthritis: back pain, musculoskeletal pain and osteoarthritis likely age-related: As needed [place] 10 and cyclobenzaprine muscle relaxant continue # worsening GERD: Started on daily PPI and Carafate, GERD diet and upright posture suggested for lifestyle modification. # denotes history of allergy to ibuprofen, Unasyn (rash) and ? penicillin allergy. Diet: CC diet. Patient is not compliant with CC diet he wants more food than suggested.avoid high amount of green leafy vegetables/high sources of vitamin K GI prophylaxis: PPI DVT prophylaxis: warfarin 2-3 INR, in therapeutic range Bowel regimen: as needed colace Barriers to discharge: Medical diagnosis and management in progress. Patient lives in home with the son who has special needs. The son is in the bed next to him. Social work consulted as patient was asking for help for his son regarding caregiver. Patient care and plan discussed with Dr. Goodwin Disposition: Patient remains in Med-Surgery. Full code, Plan and discussion needed 43 total minutes. Plan discussed with: Patient, Other (RN, primary team.) My Orders My Orders Orders - OLIVER HERNANDEZ Procedure Category Date Status Time * Wound Consult CONS 04/07/24 Transmitted Mrsa Screen PRO 04/07/24 In Process 14:33 Ampicillin & PHA 04/07/24 In Process Sulbactam Sodium 15:00 Bilat Lower Dvt US 04/07/24 Resulted 15:11 Date of Service: Apr 08, 2024 Billing Provider: KARYN JACOBSEN MD Common Visit Codes: [id number] INP/OBS CARE(HIGH) OLIVER HERNANDEZ Apr 08, 2024 10:02 KARYN JACOBSEN MD Apr 10, 2024 21:12
--- NOTE | 2024-04-08 10:04 | DVHPNRES ---
Progress Note Has the PT tested + for MRSA If YES, has PT been informed?: No Medical Necessity Reason Pt with a Central, PICC or Fol: No Objective vital signs Vital Sign Date Time Temp Pulse Resp B/P (MAP) Pulse Ox O2 Delivery O2 Flow Rate FiO2 04/08/24 09:00 97.6 67 22 123/66 (85) 96 97.6 04/08/24 08:15 Room Air* 0 21 Total Intake and Output 04/07/24 04/07/24 04/08/24 15:00 23:00 07:00 Intake Total 100 ml 300 ml 800 ml Balance 100 ml 300 ml 800 ml medications Current Medications Medications Dose Ordered Sig/Liseth Route Start Time Stop Time Status Last Admin Dose Admin Furosemide 40 mg DAILY IV 04/07/24 10:00 04/08/24 09:00 40 MG Warfarin Sodium RX PROTOCOL PER PHARMACY PO 04/07/24 02:30 Diagnostic Test (Pha) 1 strip ACHS 04/07/24 07:00 04/08/24 06:50 1 STRIP Insulin Human Regular ACHS SC 04/07/24 07:00 Dextrose 50 ml UD PRN IV 04/07/24 02:30 Sodium Chloride 10 ml Q8HR IV 04/07/24 06:00 04/08/24 06:28 10 ML Acetaminophen/ Hydrocodone Bitart 1 tab Q4HP PRN PO 04/07/24 02:30 Ondansetron HCl 4 mg Q4HP PRN IV 04/07/24 02:30 Docusate Sodium 100 mg BIDPRN PRN PO 04/07/24 02:30 Acetaminophen 650 mg Q6HP PRN PO 04/07/24 02:30 Dextrose/Sodium Chloride 1,000 ml @ 75 mls/hr [id number] IV 04/07/24 02:30 04/07/24 03:44 75 MLS/HR Nitroglycerin 0.4 mg Q5MINP PRN SL 04/07/24 03:15 Morphine Sulfate 2 mg Q30M PRN IV 04/07/24 03:15 Morphine Sulfate 2 mg Q4HPRN PRN IV 04/07/24 05:36 04/07/24 06:11 2 MG Ampicillin Sodium/ Sulbactam Sodium 3 gm/Sodium Chloride 100 ml @ 100 mls/hr Q6H IV 04/07/24 15:00 04/07/24 16:07 100 MLS/HR laboratory and microbiology Laboratory Tests 04/08/24 08:20 Test 04/08/24 08:20 Range/Units Serum Glucose Pending Microbiology Date/Time Source Procedure Growth Status 04/06/24 22:48 Blood Blood Culture - Preliminary NO GROWTH AFTER 24 HOURS OF INCUBATION. Resulted Problem List/Assessment/Plan Problem List/Assessment/Plan Hospitalization summary/ Assessment: A 58-year-old male with a history of CHF, diabetes, gout, hypertension, and left leg DVT on Coumadin presented to the ED with a nonhealing left lower extremity wound with yellow discharge, redness, and swelling for the past 7 years. Lab results showed WBC 9.1, platelets 278, sodium 137, potassium 3.4, BUN 12, creatinine 0.76, GFR 105, glucose 42, BNP 10.58, blood pressure 106/59, heart rate 65, temperature 98.2F, and O2 saturation 97%. Chest X-ray indicated pulmonary vascular congestion and possible atelectasis, edema, or developing infiltrates. He was started on IV Zosyn and admitted for further evaluation and management. He denies chest pain, headache, dizziness, diaphoresis, nausea, vomiting, fever, or chills. He lives at home and denies smoking, alcohol, or illicit drug use. Plan: #Left leg cellulitis: IV antibiotics to continue, iv abx # hypokalemia: Continue # possible pneumonia: Gram-positive cognitive: Continue IV antiemetics. Sputum culture, # pain bilateral venous stasis, follow up with the # DM: continue SSI. # patient is noncompliant, not following in-hospital advice. Diet: CC diet. GI prophylaxis: PPI DVT prophylaxis: warfarin 2-3 INR Bowel regimen: as needed Barriers to discharge: Medical diagnosis and managment in progress. Patient lives with self / family. Independent/need supportive device/wheelchair/person support for ADL. PT and SW consult as needed. Patient care and plan discussed with Dr. Goodwin Disposition: Patient remains in Med-Surgery. Full code, Plan and discussion needed 43 total minutes. My Orders My Orders Orders - OLIVER HERNANDEZ RESIDENT Procedure Category Date Status Time * Wound Consult CONS 04/07/24 Transmitted Mrsa Screen PRO 04/07/24 In Process 14:33 Ampicillin & PHA 04/07/24 In Process Sulbactam Sodium 15:00 Bilat Lower Dvt US 04/07/24 Resulted 15:11 OLIVER HERNANDEZ RESIDENT Apr 08, 2024 10:04
[2024-04-08 10:28] LABS: Alanine Aminotransferase 15 U/L (7-40); Albumin 4.1 g/dL (3.2-4.8); Alkaline Phosphatase 71 U/L (46-116); Anion Gap 6 (5-15); Aspartate Aminotransferase 31 U/L (13-40); BUN/Creatinine Ratio 11.4 (10.0-20.0); Bilirubin, Total 0.9 mg/dL (0.2-1.0); Calcium 9.7 mg/dL (8.7-10.4); Carbon Dioxide 25 mmol/L (20-31); Chloride 103 mmol/L (98-107); Glucose 104 mg/dL (74-106); Potassium 4.5 mmol/L (3.5-5.1); Total Protein 8.1 g/dL (5.7-8.2)
[2024-04-08 10:29] LABS: Blood Urea Nitrogen 9 mg/dL (9-23); Sodium 134 mmol/L (136-145)
[2024-04-08 13:00] VITALS: BP 136/75; PULSE 71; RESP 18; TEMP 97.6; O2SAT 100
[2024-04-08] MEDS: HYDROcodone-ACET 10/325MG TAB PO ONE (16:18)
[2024-04-08] MEDS: WARFARIN SODIUM 2 MG TAB PO ONE (17:06)
[2024-04-08] MEDS: SUCRALFATE 1 GM/10 ML ORAL SUSP PO ONE (17:06)
[2024-04-08] MEDS: cefTRIAXone 1GM/50ML D5W 50 ML IV ONE (17:07)
[2024-04-08 20:00] VITALS: PULSE 74; RESP 18; O2SAT 100
[2024-04-08 21:00] VITALS: BP 130/72; PULSE 74; RESP 18; TEMP 98; O2SAT 100
[2024-04-08] MEDS: HYDROcodone-ACET 10/325MG TAB PO PRN (23:12)
[2024-04-09 05:00] VITALS: BP 128/68; PULSE 70; RESP 18; TEMP 98.4; O2SAT 99
[2024-04-09 08:32] VITALS: BP 110/58; PULSE 64; RESP 20; TEMP 98.3; O2SAT 100
[2024-04-09] MEDS: cefTRIAXone 1GM/50ML D5W 50 ML IV SCH (09:08)
[2024-04-09] MEDS: SUCRALFATE 1 GM/10 ML ORAL SUSP PO SCH (10:00)
[2024-04-09 10:11] LABS: Basophils # (auto) 0.1 10 ^3/uL (0-0.2); Basophils % (auto) 1.2 % (0.0-2.0); Eosinophils # (auto) 0.2 10 ^3/uL (0-0.8); Eosinophils % (auto) 3.1 % (0.0-7.0); Hemoglobin 14.1 g/dL (13.5-17.5); Lymphocytes # (auto) 2.4 10 ^3/uL (0.4-5.4); Lymphocytes % (auto) 30.9 % (10.0-50.0); Mean Corpuscular Hemoglobin 28.1 pg (28.0-32.0); Mean Corpuscular Hgb Conc. 32.9 g/dL (32.0-36.0); Mean Corpuscular Volume 85.4 fL (80.0-100.0); Monocytes # (auto) 0.8 10 ^3/uL (0-1.3); Neutrophils # (auto) 4.1 10 ^3/uL (1.6-8.6); Neutrophils % (auto) 53.8 % (37.0-80.0); Nucleated Red Blood Cells % 0.1 %; Platelet Count (auto) 311 10^3/uL (140-450); Red Blood Cells 5.03 10^6/uL (4.5-5.90); Red Cell Distribution Width 15.1 % (11.8-14.3); White Blood Cell 7.6 10^3/uL (4.4-10.8)
[2024-04-09] MEDS ORDERED: DOCUSATE SOD 100 MG CAP PO PRN (10:15)
[2024-04-09 10:32] LABS: Alanine Aminotransferase 13 U/L (7-40); Albumin 4.4 g/dL (3.2-4.8); Alkaline Phosphatase 75 U/L (46-116); Anion Gap 6 (5-15); Aspartate Aminotransferase 19 U/L (13-40); BUN/Creatinine Ratio 15.1 (10.0-20.0); Blood Urea Nitrogen 14 mg/dL (9-23); Calcium 10.3 mg/dL (8.7-10.4); Carbon Dioxide 30 mmol/L (20-31); Chloride 100 mmol/L (98-107); Potassium 4.3 mmol/L (3.5-5.1)
[2024-04-09 10:33] LABS: Bilirubin, Total 0.6 mg/dL (0.2-1.0)
[2024-04-09 10:34] LABS: Glucose 159 mg/dL (74-106); Sodium 136 mmol/L (136-145); Total Protein 8.6 g/dL (5.7-8.2)
[2024-04-09] MEDS: PANTOPRAZOLE 40 MG TAB PO ONE (11:08)
[2024-04-09] MEDS: METOPROLOL SUCCINATE XL 50 MG TAB PO SCH (11:08)
--- NOTE | 2024-04-09 12:10 | DVHSR ---
APPROVED REPORT EXAM: Two-dimensional and M-mode echocardiogram with Doppler and color Doppler. Blood Pressure: 100/58 mmHg INDICATION HX of heart failure RISK FACTORS Height: 68, Weight: 291 DIMENSIONS LVDd4.8 (3.8-5.7cm)LA (2D) (1.9-4.0cm)Aortic Root4.5 (2.0-3.7cm) LVDs3.4 (2.5-4.0cm)LA (MM) (1.9-4.0cm)Aortic Cusp Exc1.8 (1.5-2.0cm) EF (%) 57.0 (55-70%)Rt. Atrium (1.9-4.0cm)Asc. Aorta cm Mitral Valve MitralMitral Stenosis E wave0.70m/sMV Mean GR.mmHg A wave0.89m/sMV Peak GR.mmHg E/A ratio0.82D MVAcm2 DECEL [id number] 1/2 Timems Aortic Valve Aortic ValveAortic Stenosis V11.24m/Johann Mean GR.3mmHg V21.21m/Johann Peak GR.6mmHg LVOT Diameter2.3 (1.8-2.4cm)Doppler AVA4.26cm2 Pulmonic Valve V20.98m/s Other Information Technically limited study due to body habitus. Conclusion NORMAL LV EJECTION FRACTION OF 65% MILD LVH AND MILD LV DIASTOLIC DYSFUNCTION SLIGHTLY DILATED LA MITRAL ANNULAR CALCIFICATION NORMAL TV,PV AND AORTIC VALVE NO EFFUSION NORMAL RV FUNCTION
[2024-04-09 12:30] VITALS: BP 126/64; PULSE 71; RESP 17; TEMP 98.1; O2SAT 98
[2024-04-09 14:29] LABS: INR 2.4 (0.9-1.15); Prothrombin Time 24.3 sec (9.3-11.8)
[2024-04-09 15:58] VITALS: BP 126/64; PULSE 71; RESP 17; TEMP 98.1; O2SAT 98
[2024-04-09] MEDS ORDERED: WARFARIN SODIUM 2 MG TAB PO ONE (17:00)
--- NOTE | 2024-04-09 19:01 | DVHDSRES ---
Discharge Summary Date of Admission Resident Creating Document: OLIVER HERNANDEZ RESIDENT Apr 07, 2024 at 03:15 Date of Discharge: Apr 09, 2024 Admitting Diagnosis Left leg cellulitis Wounds: Labs/Diagnostic Data: Laboratory Results Test 04/09/24 11:11 04/09/24 09:38 04/09/24 09:18 04/08/24 08:20 POC Glucose 169 mg/dl (70-106) Hemoglobin A1c 5.4 % A1C (<5.7) White Blood Count 7.6 10^3/uL (4.4-10.8) Red Blood Count 5.03 10^6/uL (4.5-5.90) Hemoglobin 14.1 g/dL (13.5-17.5) Hematocrit 43.0 % (41.0-53.0) Mean Corpuscular Volume 85.4 fL (80.0-100.0) Mean Corpuscular Hemoglobin 28.1 pg (28.0-32.0) Mean Corpuscular Hemoglobin Concent 32.9 g/dL (32.0-36.0) Red Cell Distribution Width 15.1 % (11.8-14.3) Platelet Count 311 10^3/uL (140-450) Mean Platelet Volume 7.3 fL (6.9-10.8) Neutrophils (%) (Auto) 53.8 % (37.0-80.0) Lymphocytes (%) (Auto) 30.9 % (10.0-50.0) Monocytes (%) (Auto) 11.0 % (0.0-12.0) Eosinophils (%) (Auto) 3.1 % (0.0-7.0) Basophils (%) (Auto) 1.2 % (0.0-2.0) Neutrophils # (Auto) 4.1 10 ^3/uL (1.6-8.6) Lymphocytes # (Auto) 2.4 10 ^3/uL (0.4-5.4) Monocytes # (Auto) 0.8 10 ^3/uL (0-1.3) Eosinophils # (Auto) 0.2 10 ^3/uL (0-0.8) Basophils # (Auto) 0.1 10 ^3/uL (0-0.2) Nucleated Red Blood Cells 0.1 % Prothrombin Time 24.3 sec (9.3-11.8) Prothrombin Time INR 2.4 (0.9-1.15) Sodium Level 136 mmol/L (136-145) Potassium Level 4.3 mmol/L (3.5-5.1) Chloride Level 100 mmol/L (98-107) Carbon Dioxide Level 30 mmol/L (20-31) Anion Gap 6 (5-15) Blood Urea Nitrogen 14 mg/dL (9-23) Creatinine 0.93 mg/dL (0.700-1.30) Glomerular Filtration Rate Calc 96 mL/min (>90) BUN/Creatinine Ratio 15.1 (10.0-20.0) Serum Glucose 159 mg/dL (74-106) Calcium Level 10.3 mg/dL (8.7-10.4) Total Bilirubin 0.6 mg/dL (0.2-1.0) Aspartate Amino Transferase (AST) 19 U/L (13-40) Alanine Aminotransferase (ALT) 13 U/L (7-40) Alkaline Phosphatase 75 U/L (46-116) Total Protein 8.6 g/dL (5.7-8.2) Albumin 4.4 g/dL (3.2-4.8) Activated Partial Thromboplast Time 29.4 SEC (24.5-34.5) Test 04/06/24 22:47 Lactic Acid Level 1.7 mmol/L (0.4-2.0) B-Type Natriuretic Peptide 10.58 pg/mL (0-100) Other Laboratory Tests 04/09/24 09:18 Brief Hx & Hospital Course: A 58-year-old male with a history of CHF, diabetes, gout, hypertension, and left leg DVT on Coumadin presented to the emergency department with a nonhealing left lower extremity wound with yellow discharge, redness, and swelling for the past 7 years. Lab results showed WBC 9.1, platelets 278, sodium 137, potassium 3.4, BUN 12, creatinine 0.76, GFR 105, glucose 42, BNP 10.58, blood pressure 106/59, heart rate 65, temperature 98.2F, and O2 saturation 97%. Chest X-ray indicated pulmonary vascular congestion and possible atelectasis, edema, or developing infiltrates. He was started on IV Zosyn and admitted for further evaluation and management. He denies chest pain, headache, dizziness, diaphoresis, nausea, vomiting, fever, or chills. He lives at home and denies smoking, alcohol, or illicit drug use. The patient came to the ED for worsening leg swelling and questionable left lower leg cellulitis that he had previous experiences of. Overall, with IV antibiotics and IV Lasix, he is symptomatically better. This morning, the patient had a wound care nursing evaluation and overall feels better than at admission. Hospital course: Nonocclusive thrombus in the left popliteal vein and there is no sonographic evidence for DVT in the right lower extremity. And the patient was treated for the cellulitis, the patient was given ceftriaxone and Unasyn. Home medication including aspirin, allopurinol, benazepril, metoprolol and furosemide was continued during hospital admission. Glucose was controlled through the insulin during hospital admission. On 04/09, the patient was feeling better since admission. The patient was clinically and hemodynamically stable. Patient was able to walk without any instability or pain. Discharge plan discussed with the patient and the patient was discharged. Discharge plan: Follow up with the PCP within 1 week after discharge. Tablet Augmentin b.i.d. for 7 days Home health care for wound dressing 2 times a week Operations or Procedures [place] [address] Ph: [phone] DIAGNOSTIC IMAGING Diagnostic Imaging Report : [id number] Signed PATIENT: JILLIAN SPARKS ACCT: [id number] UNIT: [id number] : 1965 LOC: [facility] ROOM / BED: [address] [place] [address] AGE / SEX: 58 / M ADM STATUS: ADM IN SERVICE [facility] ORDERING PHYSICIAN: OLIVER HERNANDEZ RESIDENT PROCEDURE(s): BLDVT - BiLat Lower DVT REASON: <recurrent DVT history, rule out DVT > ORDER NUMBER(s): [id number], ACCESSION NUMBER(s): [id number] BILATERAL LOWER EXTREMITY VENOUS DOPPLER CLINICAL HISTORY: Evaluate for DVT. Technique: Duplex Doppler evaluation of the deep venous systems of both lower extremities from the common femoral veins to the popliteal veins including color Doppler and spectral/pulsed waveform analysis was performed. COMPARISON: None FINDINGS: There is nonocclusive thrombus seen in the left popliteal vein. The remaining bilateral lower extremity deep veins appear patent with normal augmentation, compressibility and color-flow. IMPRESSION: 1. Nonocclusive thrombus in the left popliteal vein. 2. There is no sonographic evidence for DVT in the right lower extremity. HS:Y ATED BY: FITO LEWIS MD DICTATED DATE/TIME: 04/07/241704 SIGNED BY: FITO LEWIS MD SIGNED DATE/TIME: 04/07/241704 CC: Condition at Discharge: Good Final Diagnosis/Problems List Left leg cellulitis recurrent left leg cellulitis, venous ulcers: s/p failed skin graft. history of bilateral venous insufficiency on status post venous stripping surgery hypokalemia possible pneumonia, Gram-positive Gram-negative bacteria pain bilateral venous stasis DM type 2 known left leg DVT, nonocclusive history of gout history of HFpEF patient is noncompliant, not following in-hospital advice. obesity grade 3/morbid obesity, BMI 44.2 worsening left lower limb wounds seasonal allergy osteoarthritis worsening GERD Discharge Disposition: Home with Health Services Discharge Instruct/Medications Diet: Cardiac 2g Na,low cholest Activity: No Restrictions, As Tolerated Follow Up/Referral: Follow up with the PCP within one week after discharge Medications: Tab. Augmentin BID for 7 days continue home medicine Discharge Statement: "Patient was advised to return to the ER or call 911 if any headaches, dizziness, shortness of breath, chest pain, abdominal pain, bleeding, fevers, or worsening of medical condition. Patient was counseled about treatment plan, medications, possible side effects, patientverbalized understanding. All questions were answered to the best of my ability. This discharge took greater then 30 minutes in planning, reviewing documentation, counseling the patient, and discussing with other team members." ASSESSMENT ASSESSMENT Assessment Left leg cellulitis Date of Service: Apr 09, 2024 Billing Provider: KARYN JACOBSEN MD Common Visit Codes: 23881-ZCS/OBS DISCH DAY >30min FAUSTO CAMPA RESDIENT Apr 09, 2024 19:01 KARYN JACOBSEN MD Apr 10, 2024 21:54
[2024-04-09] MEDS ORDERED: FUROSEMIDE 40 MG/4 ML VIAL IV SCH (22:00)
[2024-04-09] MEDS ORDERED: PRIMIDONE 50 MG TAB PO SCH (22:00)
[2024-04-10] MEDS ORDERED: PANTOPRAZOLE 40 MG TAB PO SCH (06:00)
[2024-04-10] MEDS ORDERED: ALLOPURINOL 100 MG TAB PO SCH (10:00)
[2024-04-10] MEDS ORDERED: ASPirin-EC 81 mg tab PO SCH (10:00)
[2024-04-10] MEDS ORDERED: BENAZEPRIL HCL 10 MG TAB PO SCH (10:00)
== END 2024-04-09 16:45 | disposition home health service (06) | DRG 383 ==
LOC: ER 20:04 → EDBD 20:04 → OVERFLOW 04-07 03:15 → EDBD 04-07 03:15 → WEST WING 04-07 09:42
PROVIDERS: ADMIT Student in an Organized Health Care Education/Training Program; ATTEND Student in an Organized Health Care Education/Training Program
DX: L03.116 Cellulitis of left lower limb (principal); J15.69 Pneumonia due to other Gram-negative bacteria; E11.649 Type 2 diabetes mellitus with hypoglycemia without coma; I11.0 Hypertensive heart disease with heart failure; J15.9 Unspecified bacterial pneumonia; I82.502 Chronic embolism and thrombosis of unspecified deep veins of left lower extremity; I50.32 Chronic diastolic (congestive) heart failure; E87.6 Hypokalemia; E66.01 Morbid (severe) obesity due to excess calories; M10.9 Gout, unspecified; K21.9 Gastro-esophageal reflux disease without esophagitis; Z88.6 Allergy status to analgesic agent; Z88.0 Allergy status to penicillin; Z68.41 Body mass index [BMI] 40.0-44.9, adult
CPT/HCPCS: 36415; 71045; 80048; 80053; 82962; 83036; 83605; 83880; 85025; 85610; 85730; 87040; 87081; 93306; 93970; G0378; J1815; J2543; J7042